=== PATIENT | female | born 1970 | race Caucasian/White ===

== ENCOUNTER 2023-09-08 19:49 | Emergency (ER) | payer MEDICAID ==
[~2023-09-08] VITALS: Ht 157.5 cm; Wt 64.0 kg
[2023-09-08 20:16] VITALS: BP 122/71; PULSE 73; RESP 14; TEMP 96.8; O2SAT 97
[2023-09-09] MEDS ORDERED: IBUP-2029 MT
== END 2023-09-09 00:19 | disposition home or self-care (01) ==
LOC: ER 19:49
DX: M25.511 Pain in right shoulder (principal); E11.9 Type 2 diabetes mellitus without complications; R25.3 Fasciculation
CPT/HCPCS: 99281